=== PATIENT | female | born 1970 | race Hispanic/Latino ===

== ENCOUNTER → 2024-06-24 | Day surgery (SDC) | payer OTHER ==
[~2024-06-24] MED LIST: ACETAMINOPHEN 1000 MG/100 ML IV PRN; ASPIRIN 325 MG TAB PO SCH; ASPIRIN81 MG PO; CELECOXIB 100 MG CAP PO SCH; DICLOFENAC35 MG PO; DIPHENHYDRAMINE HCL INJ 50 MG/ML VIAL IV PRN; DOCUSATE SODIUM 100 MG CAP PO PRN; HYDROCODONE/APAP 5MG-325MG TAB PO PRN; HYDROCODONE/APAP 7.5MG-325MG 1 EA TAB PO PRN; LEVOTHYROXINE75 MCG PO; ROPIVACAINE/EPI/CLONIDINE/KET 50 ML SYRINGE INJ ONE; SODIUM CHLORIDE 0.9% 1000ML 1,000 ML IV SCH; SODIUM CHLORIDE 0.9% 500ML 500 ML ONE; TRANEXAMIC ACID 20 ML ONE; Vancomycin IV 500 MG ONE
[2024-06-24] MEDS: DEXAMETHASONE SOD PHOS 10 MG/1 ML VIAL ONE (06:31)
[2024-06-24] MEDS: CELECOXIB 200 MG CAP ONE (06:31)
[2024-06-24] MEDS: GABAPENTIN 300 MG CAP ONE (06:31)
[2024-06-24] MEDS: CEFAZOLIN SODIUM 2 GM ONE (06:32)
[2024-06-24] MEDS: LACTATED RINGER'S 1,000 ML ONE (06:32)
[2024-06-24 09:39] VITALS: TEMP 97.2
[2024-06-24] MEDS: ONDANSETRON HCL INJ 2MG/ML 2ML 2 MG/ML VIAL IV PRN (10:33)
[2024-06-24] MEDS: METOCLOPRAMIDE HCL 10 MG/2ML VIAL ONE (10:50)
[2024-06-24 11:30] VITALS: BP 117/54; PULSE 73; RESP 18; O2SAT 94
== END | disposition home health service (06) ==
LOC: OR 06:06
PROVIDERS: ATTEND Specialist
DX: M17.11 Unilateral primary osteoarthritis, right knee (principal); M25.761 Osteophyte, right knee; E03.9 Hypothyroidism, unspecified; G89.29 Other chronic pain; Z01.812 Encounter for preprocedural laboratory examination; Z79.82 Long term (current) use of aspirin; Z79.899 Other long term (current) drug therapy; Z68.33 Body mass index [BMI] 33.0-33.9, adult
CPT/HCPCS: 27447; 73560; 81025; 86850; 86900; 97110; 97116; 97161; C1713 ×2; C1776 ×2; J0690; J1100; J2405; J2765; J2795; J3370; J7040; J7121

== ENCOUNTER 2024-07-17 13:53 | Outpatient (RCR) | payer BC ==
[~2024-07-17 13:53] MED LIST changes: -ACETAMINOPHEN 1000 MG/100 ML IV PRN; -ASPIRIN 325 MG TAB PO SCH; -CELECOXIB 100 MG CAP PO SCH; -DIPHENHYDRAMINE HCL INJ 50 MG/ML VIAL IV PRN; -DOCUSATE SODIUM 100 MG CAP PO PRN; -HYDROCODONE/APAP 5MG-325MG TAB PO PRN; -HYDROCODONE/APAP 7.5MG-325MG 1 EA TAB PO PRN; -ROPIVACAINE/EPI/CLONIDINE/KET 50 ML SYRINGE INJ ONE; -SODIUM CHLORIDE 0.9% 1000ML 1,000 ML IV SCH; -SODIUM CHLORIDE 0.9% 500ML 500 ML ONE; -TRANEXAMIC ACID 20 ML ONE; -Vancomycin IV 500 MG ONE
== END 2024-07-20 ==
LOC: PT 13:53
PROVIDERS: ATTEND Physician Assistant
DX: Z47.1 Aftercare following joint replacement surgery (principal); Z96.651 Presence of right artificial knee joint; M25.561 Pain in right knee; M25.661 Stiffness of right knee, not elsewhere classified; R26.2 Difficulty in walking, not elsewhere classified

== ENCOUNTER 2024-08-07 13:00 | Outpatient (RCR) | payer BC | END 2024-08-20 | LOC: PT 13:00 | PROVIDERS: ATTEND Physician Assistant | DX: Z47.1 Aftercare following joint replacement surgery (principal); Z96.651 Presence of right artificial knee joint; M25.561 Pain in right knee; M25.661 Stiffness of right knee, not elsewhere classified; R26.2 Difficulty in walking, not elsewhere classified ==

== ENCOUNTER 2024-08-26 11:10 | Outpatient (RCR) | payer BC | END 2024-09-20 | LOC: PT 11:10 | PROVIDERS: ATTEND Physician Assistant | DX: Z47.1 Aftercare following joint replacement surgery (principal); Z96.651 Presence of right artificial knee joint; M25.561 Pain in right knee; M25.661 Stiffness of right knee, not elsewhere classified; R26.2 Difficulty in walking, not elsewhere classified ==